=== PATIENT | male | born 1960 | race Caucasian/White ===

== ENCOUNTER 2019-10-30 | Emergency (ER) | payer SELFPAY ==
[2019-10-30] MEDS ORDERED: FISH OIL1000 MG PO (14:28)
[2019-10-30 16:07] LABS: ANION GAP 16 (6-22 (CALC)); BUN 14 mg/dL (9-20); BUN/CREATININE RATIO 18 (12-20 (CALC)); CARBON DIOXIDE 20 mmol/l (22-30); CHLORIDE 104 mmol/l (95-108); CREATININE 0.8 mg/dL (0.7-1.3); GFR > 60 ML/MIN (>=60 (CALC)); GFR FOR AFR.AMER. > 60 ML/MIN (>=60 (CALC)); HEMATOCRIT 48.5 % (39.0-50.0); HEMOGLOBIN 16.8 g/dl (14.0-18.0); IMMATURE GRANULOCYTES 0.2 % (0.0-5.0); MEAN CELL VOLUME 92.4 fL CALC (80.0-100.0); MEAN CORPUSCULAR HGB CONC 34.6 g/L CALC (32.0-36.0); NEUT# 7.22 thou/uL (1.82-7.42); RED BLOOD COUNT 5.25 mill/uL (4.70-6.10); RED CELL DISTRI WIDTH 13.1 % (11.5-15.5); SODIUM 136 mmol/l (137-146)
== END 2019-10-30 17:42 | disposition home or self-care (01) | DRG 103 ==
PROVIDERS: Family Medicine
DX: R51 Headache (principal); I10 Essential (primary) hypertension

== ENCOUNTER 2020-05-19 10:50 | Observation (INO) | payer SELFPAY ==
[~2020-05-19] VITALS: Ht 167.6 cm; Wt 76.7 kg
[~2020-05-19 10:50] MED LIST: FISH OIL1000 MG PO
--- NOTE | 2020-05-19 10:52 | NUR ---
PT AMBUALTORY TO ROOM # 9 FOR BEDSIDE TRIAGE.
--- NOTE | 2020-05-19 10:52 | NUR ---
PATIENT AMBULATED TO ROOM REFUSING WHEELCHAIR AND PHYSICIAN NOTIFIED OF PATIENT STATUS
--- NOTE | 2020-05-19 11:10 | NUR ---
PT AO X 3. IN GOWN. MONITORS IN PLACE. PT REPORTS LEFT ARM ACHING PAIN 1/10 FOR THE PAST COUPLE OF DAYS
[2020-05-19] MEDS ORDERED: LOSARTAN POTASS25 MG PO (11:30)
[2020-05-19 11:33] LABS: HEMOGLOBIN 16.7 g/dl (14.0-18.0); IMMATURE GRANULOCYTES 0.3 % (0.0-5.0); MEAN CELL VOLUME 91.9 fL CALC (80.0-100.0); MEAN CORPUSCULAR HGB 31.3 pG CALC (26.0-32.0); MEAN CORPUSCULAR HGB CONC 34.1 g/dL CAL (32.0-36.0); NEUT# 4.06 thou/uL (1.82-7.42); RED BLOOD COUNT 5.33 mill/uL (4.70-6.10); RED CELL DISTRI WIDTH 12.7 % (11.5-15.5)
[2020-05-19 11:49] LABS: ALBUMIN 4.4 g/dL (3.2-5.0); ALKALINE PHOSPHATASE 102 u/l (38-126); ANION GAP 14 (6-22 (CALC)); BILIRUBIN, TOTAL 0.8 mg/dL (0.0-1.4); BUN 12 mg/dL (9-20); BUN/CREATININE RATIO 13 (12-20 (CALC)); CARBON DIOXIDE 24 mmol/l (22-30); CHLORIDE 102 mmol/l (95-108); CREATININE 0.9 mg/dL (0.7-1.3); GFR > 60 ML/MIN (>=60 (CALC)); GFR FOR AFR.AMER. > 60 ML/MIN (>=60 (CALC)); SGOT/AST 28 u/l (17-59); SODIUM 136 mmol/l (137-146); TOTAL PROTEIN 7.5 g/dL (6.3-8.2)
[2020-05-19 12:01] LABS: MYOGLOBIN 27 ng/mL (0 - 121)
--- NOTE | 2020-05-19 12:26 | NUR ---
PT RESTING COMFORTABLY ON STRETCHER AWAITING RESULTS
--- NOTE | 2020-05-19 13:50 | NUR ---
REPORT GIVEN TO BREANNA GREENBERGHORTICULTURAL SERVICES SUPERVISOR
--- NOTE | 2020-05-19 14:15 | NUR ---
PT TRANSPORTED VIA WHEELCHAIR TO [facility] SURG TELEMETRY IN PLACE
[2020-05-19 14:20] VITALS: BP 138/88
--- NOTE | 2020-05-19 16:05 | NUR ---
PT. ALERT AND ORIENTED X 3. AMBULATORY. ADMITTED VIA ER. HAS PATENT 20G RIGHT AC. ECG NORMAL. DENIES PAIN AT PRESENT. PRESENTED TO ER WITH PAIN IN LEFT ARM/SHOULDER. WILL MONITOR.
--- NOTE | 2020-05-19 18:00 | NUR ---
PT. REFUSED IV FLUIDS. A&O X 3 AND TAKING PO FLUIDS WELL.
[2020-05-19 18:50] VITALS: BP 142/93
--- NOTE | 2020-05-19 19:50 | NUR ---
PATIENT IS ALERT AND ORIENTED X3. ABLE TO MAKE NEEDS KNOWN. RESPIRATIONS EASY ON ROOM AIR. NO COMPLAINTS OF PAIN OR DISCOMFORT VERBALIZED. SKIN WARM AND DRY. #20 R AC PATENT AND S/L. PATIENT IS INDEPENDENT WITH ADLS AND MOBILITY. ON TELEMETRY. BED IN LOW POSITION. CALL LIGHT WITHIN REACH.
--- NOTE | 2020-05-20 00:05 | NUR ---
PATIENT RESTING QUIETLY WITH EYES CLOSED. RESPIRATIONS EASY ON ROOM AIR. NO COMPLAINTS VERBALIZED. NO DISTRESS NOTED. BED IN LOW POSITION. CALL LIGHT WITHIN REACH.
[2020-05-20 00:10] VITALS: BP 126/77
--- NOTE | 2020-05-20 04:21 | NUR ---
PATIENT RESTING WITH EYES CLOSED. NOT ACUTE DISTRESS NOTED. BED IN LOW POSITION. CALL LIGHT WITHIN REACH.
[2020-05-20 05:02] VITALS: BP 120/71
[2020-05-20 06:17] LABS: HEMOGLOBIN 15.8 g/dl (14.0-18.0); IMMATURE GRANULOCYTES 0.3 % (0.0-5.0); MEAN CELL VOLUME 93.9 fL CALC (80.0-100.0); MEAN CORPUSCULAR HGB 32.2 pG CALC (26.0-32.0); MEAN CORPUSCULAR HGB CONC 34.3 g/dL CAL (32.0-36.0); NEUT# 4.95 thou/uL (1.82-7.42); RED BLOOD COUNT 4.9 mill/uL (4.70-6.10); RED CELL DISTRI WIDTH 12.9 % (11.5-15.5)
[2020-05-20 06:35] LABS: ALBUMIN 3.9 g/dL (3.2-5.0); ALKALINE PHOSPHATASE 93 u/l (38-126); ANION GAP 13 (6-22 (CALC)); BUN 17 mg/dL (9-20); BUN/CREATININE RATIO 17 (12-20 (CALC)); CALCULATED LDLCHOLESTEROL 89 mg/dL (62-129 (CALC)); CARBON DIOXIDE 23 mmol/l (22-30); CHLORIDE 104 mmol/l (95-108); CHOLESTEROL HDL RATIO 4.3 (<4.4 (CALC)); GFR > 60 ML/MIN (>=60 (CALC)); GFR FOR AFR.AMER. > 60 ML/MIN (>=60 (CALC)); HDL CHOLESTEROL 40 mg/dL (>=40); MAGNESIUM 2.2 mg/dL (1.6-2.3); POTASSIUM 4.1 mmol/l (3.5-5.1); SGOT/AST 25 u/l (17-59); SODIUM 136 mmol/l (137-146); TOTAL CHOLESTEROL 172 mg/dl (0-199); TOTAL PROTEIN 6.5 g/dL (6.3-8.2); TOTAL TRIGLYCERIDES 215 mg/dl (30-149); VLDL CHOLESTROL 43 mg/dl (8-62 (CALC))
[2020-05-20 06:46] LABS: BILIRUBIN, TOTAL 0.4 mg/dL (0.0-1.4)
--- NOTE | 2020-05-20 07:05 | NUR ---
REPORT RECEIVED FROM YARI AVERY;PT RESTING IN SEMI FOWLERS POSITION;RESPIRATIONS EVEN AND UNLABORED ON RA;PT DENIES ANY CURRENT PAIN OR NEEDS;TELE MONITORING IN PLACE;PT ENCOURAGED TO CALL FOR ASSISTANCE IF NEEDED;FALL PRECAUTIONS IN PLACE WITH CALL LIGHT IN REACH;WILL CONTINUE TO MONITOR
--- NOTE | 2020-05-20 07:10 | NUR ---
REPORT RECEIVED FROM JAVIDRN;PT RESTING IN SEMI FOWLERS POSITION;INTRODUCED SELF TO PT AND POC DISCUSSED;RESPIRATIONS EVEN AND UNLABORED ON RA;PT DENIES ANY CURRENT PAIN OR NEEDS;TELE MONITORING IN PLACE;ACCUCHECK 114, NO COVERAGE NEEDED;ALL SAFETY PRECAUTIONS REMAIN IN PLACE WITH BED IN THE LOWEST POSITION AND CALL LIGHT IN REACH;WILL CONTINUE TO MONITOR
[2020-05-20 08:30] VITALS: BP 140/82
--- NOTE | 2020-05-20 08:30 | NUR ---
PT RESTING IN SEMI FOWLERS POSITION,A&O X3;VS OBTAINED AND ASSESSMENT COMPLETED;PT DENIES ANY CURRENT PAIN OR DISCOMFORTS,PAIN SCALE AND REPORTING EDUCATED;RESPIRATIONS EVEN AND UNLABORED ON RA,CLEAR LUNG SOUNDS;ABDOMEN SOFT ON PALPATION AND ACTIVE IN ALL 4 QUADRANTS;STRONG PEDAL PULSES;SKIN INTACT;TELE MONITORING IN PLACE;#20G TO RAC FLUSHED AND PATENT,NS STARTED @ 100ML/HR PER ORDER;PT DENIES ANY ADDITIONAL NEEDS AT THIS TIME AND IS ENCOURAGED TO CALL FOR ASSISTANCE IF NEEDED;FALL PRECAUTIONS IN PLACE WITH BED IN THE LOWEST POSITION AND CALL LIGHT IN REACH;WILL CONTINUE TO MONITOR
--- NOTE | 2020-05-20 08:49 | NUR ---
AT BEDSIDE DISCUSSING POC WITH PT.
[2020-05-20 11:06] VITALS: BP 129/76
--- NOTE | 2020-05-20 11:15 | NUR ---
PT RESTING IN SEMI FOWLERS POSITION;RESPIRATIONS EVEN AND UNLABORED ON RA;PT DENIES ANY CURRENT PAIN OR DISCOMFORTS;TELE MONITORING IN PLACE;IV SITE PATENT INFUSING NS PER ORDER;PT AWARE OF PENDING D/C AND VERBALIZES UNDERSTANDING,AWAITING ORDER AT THIS TIME;ASSESSMENT REMAINS UNCHANGED;ENCOURAGED TO CALL FOR ASSISTANCE IF NEEDED;FALL PRECAUTIONS IN PLACE WITH CALL LIGHT IN REACH;WILL CONTINUE TO MONITOR
[2020-05-20] MEDS ORDERED: ASPIRIN 81 LOW81 MG PO (12:06)
[2020-05-20] MEDS ORDERED: ATORVASTATIN CA10 MG PO (12:06)
--- NOTE | 2020-05-20 13:08 | NUR ---
ALL DISCHARGE INSTRUCTIONS PROVIDED AT THIS TIME;PT INSTRUCTED TO FOLLOW UP WITH PCP AND CARDIOLOGY;PT ALSO INSTRUCTED TO CONTINUE WITH HOME [facility] AND TO START A LOG OF BLOOD PRESSURES TO PROVIDED TO PCP;RX FOR ASPIRIN AND ATORVASTATIN PROVIDED;PT DENIES ANY ADDITIONAL QUESTIONS OR NEEDS;IV SITE REMOVED WITH CATHETER INTACT AND TELE MONITORING D/C;WHEELCHAIR TO BE PROVIDED FOR D/C HOME;PT TO TRANSPORT SELF HOME;WILL CONTINUE TO MONITOR
--- NOTE | 2020-05-20 13:18 | NUR ---
Discharge instructions given. Patient verbalizes understanding of same. Discharged in stable condition via Wheelchair to Home with *Other. All belongings sent with pt. PT TRANSPORTED TO [facility] IN STABLE CONDITION VIA WHEELCHAIR ACCOMPANIED BY LUIS ALBERTO MONCADA FOR D/C HOME;PT TO TRANSPORT SELF HOME.
== END 2020-05-20 13:20 | disposition home or self-care (01) | DRG 313 ==
LOC: ED 10:50 → ED-I 12:55 → ED 13:08 → MS2 13:09
PROVIDERS: Emergency Medicine; Nurse Practitioner; ADMIT Internal Medicine; ATTEND Internal Medicine
DX: R07.89 Other chest pain (principal); I10 Essential (primary) hypertension; E78.5 Hyperlipidemia, unspecified; F17.200 Nicotine dependence, unspecified, uncomplicated; Z82.49 Family history of ischemic heart disease and other diseases of the circulatory system; Z20.828 Contact with and (suspected) exposure to other viral communicable diseases
CPT/HCPCS: G0378; J1650

== ENCOUNTER 2022-03-28 03:06 | Emergency (ER) | payer SELFPAY ==
[~2022-03-28] VITALS: Ht 167.6 cm; Wt 74.0 kg
[~2022-03-28 03:06] MED LIST changes: +ASPIRIN 81 LOW81 MG PO; +ATORVASTATIN CA10 MG PO; +LOSARTAN POTASS25 MG PO
[2022-03-28 03:23] VITALS: BP 151/91
[2022-03-28 03:30] VITALS: BP 149/90
[2022-03-28 03:46] LABS: HEMATOCRIT 45.7 % (39.0-50.0); HEMOGLOBIN 15.7 g/dl (14.0-18.0); IMMATURE GRANULOCYTES 0.6 % (0.0-5.0); MEAN CELL VOLUME 96.6 fL CALC (80.0-100.0); MEAN CORPUSCULAR HGB 33.2 pG CALC (26.0-32.0); MEAN CORPUSCULAR HGB CONC 34.4 g/dL CAL (32.0-36.0); NEUT# 4.51 thou/uL (1.82-7.42); RED BLOOD COUNT 4.73 mill/uL (4.70-6.10); RED CELL DISTRI WIDTH 12.9 % (11.5-15.5)
[2022-03-28 03:58] LABS: URINE BILIRUBIN - DIPSTICK NEGATIVE (NEGATIVE); URINE COLOR YELLOW; URINE GLUCOSE - DIPSTICK NEGATIVE (NEGATIVE); URINE KETONE NEGATIVE (NEGATIVE); URINE LEUK ESTERASE NEGATIVE (NEGATIVE); URINE PROTEIN - DIPSTICK NEGATIVE (NEG-TRACE); URINE SPECIFIC GRAVITY >=1.030; URINE UROBILINOGEN - DIPSTICK 0.2 E.U./dL (0.2)
[2022-03-28 04:01] VITALS: BP 148/95
[2022-03-28 04:01] LABS: URINE BLOOD DIPSTICK NEGATIVE (NEGATIVE); URINE NITRITE - DIPSTICK NEGATIVE (Negative)
[2022-03-28 04:07] LABS: ALBUMIN 4.4 g/dL (3.2-5.0); ALKALINE PHOSPHATASE 100 u/l (38-126); ANION GAP 12 (6-22 (CALC)); BILIRUBIN, TOTAL 0.4 mg/dL (0.0-1.4); BUN 14 mg/dL (9-20); BUN/CREATININE RATIO 18 (12-20 (CALC)); CARBON DIOXIDE 25 mmol/l (22-30); CHLORIDE 106 mmol/l (95-108); CREATININE 0.8 mg/dL (0.7-1.3); GFR FOR AFR.AMER. > 60 ML/MIN (>=60 (CALC)); GFR OTHER RACES > 60 ML/MIN (>=60 (CALC)); SGOT/AST 30 u/l (17-59); SODIUM 139 mmol/l (137-146); TOTAL PROTEIN 7.5 g/dL (6.3-8.2)
[2022-03-28 04:19] LABS: MYOGLOBIN 33 ng/mL (0 - 121)
[2022-03-28 04:30] VITALS: BP 134/87
[2022-03-28 04:38] LABS: TSH, 3RD GENERATION 2.11 uIU/mL (0.47 - 4.68)
[2022-03-28 05:00] VITALS: BP 139/85
[2022-03-28] MEDS ORDERED: LOPRESSOR25 M1 PO (05:09)
[2022-03-28 05:14] VITALS: BP 139/85
== END 2022-03-28 05:15 | disposition left against medical advice (07) | DRG 313 ==
LOC: ED 03:06
PROVIDERS: Emergency Medicine
DX: R07.9 Chest pain, unspecified (principal); R00.2 Palpitations; I10 Essential (primary) hypertension; F17.200 Nicotine dependence, unspecified, uncomplicated; Z86.16 Personal history of COVID-19; Z91.19 Patient's noncompliance with other medical treatment and regimen

== ENCOUNTER 2022-06-01 10:02 | Emergency (ER) | payer SELFPAY ==
[~2022-06-01] VITALS: Ht 167.6 cm; Wt 75.0 kg
[~2022-06-01 10:02] MED LIST changes: +LOPRESSOR25 M1 PO
[2022-06-01 10:15] VITALS: BP 127/82
[2022-06-01 10:31] VITALS: BP 120/73
[2022-06-01 10:35] LABS: HEMATOCRIT 42.8 % (39.0-50.0); HEMOGLOBIN 15.2 g/dl (14.0-18.0); IMMATURE GRANULOCYTES 0.3 % (0.0-5.0); MEAN CELL VOLUME 96.2 fL CALC (80.0-100.0); MEAN CORPUSCULAR HGB 34.2 pG CALC (26.0-32.0); MEAN CORPUSCULAR HGB CONC 35.5 g/dL CAL (32.0-36.0); NEUT# 6.03 thou/uL (1.82-7.42); RED BLOOD COUNT 4.45 mill/uL (4.70-6.10); RED CELL DISTRI WIDTH 12.3 % (11.5-15.5)
[2022-06-01 11:25] LABS: ALBUMIN 4.4 g/dL (3.2-5.0); ALKALINE PHOSPHATASE 84 u/l (38-126); BUN 11 mg/dL (9-20); BUN/CREATININE RATIO 13 (12-20 (CALC)); CARBON DIOXIDE 27 mmol/l (22-30); CHLORIDE 105 mmol/l (95-108); CREATININE 0.8 mg/dL (0.7-1.3); GFR FOR AFR.AMER. > 60 ML/MIN (>=60 (CALC)); GFR OTHER RACES > 60 ML/MIN (>=60 (CALC)); SGOT/AST 34 u/l (17-59); SODIUM 139 mmol/l (137-146); TOTAL PROTEIN 7.1 g/dL (6.3-8.2)
[2022-06-01 11:28] LABS: ANION GAP 12 (6-22 (CALC)); BILIRUBIN, TOTAL 0.7 mg/dL (0.0-1.4)
[2022-06-01 11:56] VITALS: BP 120/73
== END 2022-06-01 12:02 | disposition home or self-care (01) | DRG 556 ==
LOC: ED 10:02
PROVIDERS: Family Medicine
DX: M79.662 Pain in left lower leg (principal); I10 Essential (primary) hypertension; F17.200 Nicotine dependence, unspecified, uncomplicated; Z86.16 Personal history of COVID-19